=== PATIENT | female | born 1970 | race Two or more races ===

== ENCOUNTER → 2019-10-25 | Outpatient (CLI) | payer BC ==
[~2019-10-25] MED LIST: NONE PER PT
== END | disposition home or self-care (01) ==
LOC: STAR 08:02
PROVIDERS: ATTEND Surgery
DX: Z01.818 Encounter for other preprocedural examination (principal); Z11.59 Encounter for screening for other viral diseases
CPT/HCPCS: U0001

== ENCOUNTER 2019-10-29 11:05 | Day surgery (SDC) | payer BC ==
[~2019-10-29] VITALS: Ht 170.2 cm; Wt 67.2 kg
[~2019-10-29 11:05] MED LIST changes: +BUPIVACAINE/PF-EPI 0.5% 1:200K ONE
[2019-10-29] MEDS ORDERED: LACTATED RINGERS 1,000 ML IV SCH (11:46)
[2019-10-29 11:59] LABS: HCG UR SG 1.006 (1.003-1.030)
[2019-10-29] MEDS ORDERED: LIDOCAINE-MPF 1%, 2ML INFIL ONE (12:00)
[2019-10-29] MEDS ORDERED: CHLORHEXIDINE 15 ML UDC MM ONE (12:00)
[2019-10-29] MEDS ORDERED: BUPIVACAINE/PF-EPI 0.5% 1:200K ONE (13:41)
[2019-10-29] MEDS ORDERED: SCOPOLAMINE 1MG PATCH TD ONE ×2 (13:49)
[2019-10-29] MEDS ORDERED: FENTANYL PF 250 MCG/5ML ONE (14:00)
[2019-10-29] MEDS ORDERED: MIDAZOLAM 1 MG/ML, 2ML ONE (14:00)
[2019-10-29] MEDS ORDERED: SCOPOLAMINE PATCH, 1.5MG PATCH.TD72 TD ONE (14:12)
[2019-10-29] MEDS ORDERED: KETOROLAC 30 MG/1 ML ONE ×3 (14:12→15:00)
[2019-10-29] MEDS ORDERED: PROMETHAZINE 25 MG/ML, 1ML IV PRN (14:30)
[2019-10-29] MEDS ORDERED: ALBUTEROL SULFATE 2.5 MG/3 ML NPPB PRN (14:30)
[2019-10-29] MEDS ORDERED: ACETAMINOPHEN 325 MG TABLET PO PRN (14:30)
[2019-10-29] MEDS ORDERED: hydrALAzine 20 MG/ML, 1ML IV PRN (14:30)
[2019-10-29] MEDS ORDERED: KETOROLAC 30 MG/1 ML IV PRN (14:30)
[2019-10-29] MEDS ORDERED: DIAZEPAM 5 MG/ML, 2ML IVPush PRN (14:30)
[2019-10-29] MEDS ORDERED: OXYcodone 5 MG/5 ML ORAL.SOL UDC PO PRN (14:30)
[2019-10-29] MEDS ORDERED: MEPERIDINE/PF 25MG/0.5ML IVPush PRN (14:30)
[2019-10-29] MEDS ORDERED: LABETALOL 5MG/ML, 20ML IV PRN (14:30)
[2019-10-29] MEDS ORDERED: PROPOFOL 10 MG/ML, 20ML ONE (15:00)
[2019-10-29] MEDS ORDERED: DEXAMETHASONE 4 MG/ML, 1ML ONE (15:00)
[2019-10-29] MEDS ORDERED: CEFAZOLIN 1,000 MG ONE (15:00)
[2019-10-29] MEDS ORDERED: ONDANSETRON 2MG/ML, 2ML ONE (15:00)
[2019-10-29] MEDS ORDERED: SUCCINYLCHOLINE 20 MG/ML, 10ML ONE (15:00)
[2019-10-29] MEDS ORDERED: ROCURONIUM 10MG/ML,5ML ONE (15:00)
[2019-10-29] MEDS ORDERED: NEOSTIGMINE 1 MG/ML, 10ML ONE (15:00)
[2019-10-29] MEDS ORDERED: GLYCOPYRROLATE 0.2MG/1ML, 5ML ONE (15:00)
[2019-10-29] MEDS ORDERED: SUGAMMADEX 200 MG/2 ML IVPush ONE (15:00)
[2019-10-29] MEDS ORDERED: FENTANYL PF 100 MCG/2ML ONE ×2 (15:54→16:33)
[2019-10-29] MEDS ORDERED: ACETAMINOPHEN 650 MG/20.3 ML UDC ONE (15:54)
[2019-10-29] MEDS ORDERED: OXYcodone 5 MG/5 ML ORAL.SOL UDC ONE (15:54)
[2019-10-29] MEDS: FENTANYL PF 100 MCG/2ML IV PRN ×3 (15:59→16:26)
[2019-10-29] MEDS: HYDROmorphone 2 MG/ML, 1ML IVPush PRN ×2 (16:01→16:10)
[2019-10-29] MEDS ORDERED: HYDROmorphone 1 MG/ML, 1ML INJ ONE (16:08)
== END 2019-10-29 18:40 | disposition home or self-care (01) ==
LOC: OUT 11:05
PROVIDERS: ATTEND Surgery
DX: K42.0 Umbilical hernia with obstruction, without gangrene (principal)
CPT/HCPCS: 49653; 81025; C1781; J0690; J1100; J1170; J1885; J2250; J2405; J2704; J3010; J7120; S2900; J2710; J0330